=== PATIENT | male | born 2000 | race Caucasian/White ===

== ENCOUNTER 2022-10-18 17:20 | Emergency (ER) | payer OTHER ==
[2022-10-18 17:31] VITALS: BP 127/63; PULSE 86; RESP 18; TEMP 98.1; BMI 51.6
== END 2022-10-18 20:28 | disposition home or self-care (01) ==
LOC: JERFT 17:20
DX: R51.9 Headache, unspecified (principal)
CPT/HCPCS: 70450-TC; 99284-25